=== PATIENT | male | born 1985 | race Two or more races ===

== ENCOUNTER 2020-07-01 17:35 | Emergency (ER) | payer SELFPAY ==
[~2020-07-01] VITALS: Ht 180.3 cm; Wt 104.3 kg
[2020-07-01 17:39] VITALS: BP 149/74
[2020-07-01 17:54] VITALS: BP 149/74
--- NOTE | 2020-07-01 18:30 | Emergency Room Report ---
History of Present Illness General Chief Complaint: Overdose Source: Patient Present Illness HPI 35 YO male presents to the ED brought by RA for tachycardia and abnormal behavior. Pt. refused to be examined beyond triage. D/w pt. we are concerned regarding his tachycardia and need to arrive via ambulance. Pt. refuses medical care. D/w pt. that he would need to sign out AMA paperwork. Pt. refused to sign. He is A & O x 4. ambulatory with a steady gait without assistance. most of this conversation took place in the hallway as pt. was attempting to elope. Pt. returned 10 minutes later requesting permission to look for his sunglasses. He was unsuccessful at finding them. Allergies: Coded Allergies: No Known Allergies (Unverified , 07/01/20) COVID-19 Screening Contact w/high risk pt: No Experienced COVID-19 symptoms?: No COVID-19 Testing performed SPRINKLER FITTER: No Nursing Documentation-[facility] Past Medical History: No Stated History Physical Exam Vital Signs Date Time Temp Pulse Resp B/P (MAP) Pulse Ox O2 Delivery O2 Flow Rate FiO2 07/01/20 17:30 97.7 134 20 149/74 (99) 99 Room Air Medical Decision Making PA Attestation Dr. Kern Is my supervising Physician whom patient management has been discussed with. Diagnostic Impression: Primary Impression: Tachycardia Additional Impression: Left against medical advice ER Course 35 YO male presents to the ED brought by RA for tachycardia and abnormal behavior. Pt. refused to be examined beyond triage. D/w pt. we are concerned regarding his tachycardia and need to arrive via ambulance. Pt. refuses medical care. D/w pt. that he would need to sign out AMA paperwork. Pt. refused to sign. He is A & O x 4. ambulatory with a steady gait without assistance. most of this conversation took place in the hallway as pt. was attempting to elope. Pt. returned 10 minutes later requesting permission to look for his sunglasses. He was unsuccessful at finding them. Last Vital Signs Date Time Temp Pulse Resp B/P (MAP) Pulse Ox O2 Delivery O2 Flow Rate FiO2 07/01/20 17:54 97.7 100 20 149/74 99 Room Air Disposition: AGAINST MEDICAL ADVICE Condition: Unknown Referrals: NOT CHOSEN IPA/,REFERRING (PCP) Alis Swanson Jul 01, 2020 18:30
== END 2020-07-01 17:50 | disposition left against medical advice (07) ==
LOC: EDBD 17:35 → EMR 17:40
DX: R00.0 Tachycardia, unspecified (principal)
CPT/HCPCS: 99281